=== PATIENT | male | born 1985 | race Two or more races ===

== ENCOUNTER 2022-11-06 17:51 | Inpatient (IN) | payer OTHER ==
[~2022-11-06] VITALS: Ht 177.8 cm; Wt 175.0 kg
[2022-11-06] MEDS ORDERED: SUBOXONE PO (18:24)
[2022-11-06] MEDS ORDERED: BUPRENORPHINE HCL/NALOXONE HCL 8-2 MG SUBLINGUAL TABLET SL ONE (19:45)
[2022-11-06 20:09] LABS: COVID AG,FIA SOURCE NASAL SWAB
[2022-11-06 20:29] LABS: SARS-COV2 (COVID) ANTIGEN,FIA Negative (Negative)
[2022-11-06 21:15] VITALS: BP 109/69; PULSE 86; RESP 18; TEMP 98.8
[2022-11-06] MEDS ORDERED: DICYCLOMINE HCL 10 MG CAPSULE PO PRN (22:30)
[2022-11-06] MEDS ORDERED: LOPERAMIDE HCL 2 MG CAPSULE PO PRN (22:30)
[2022-11-06] MEDS ORDERED: LORazepam 2 MG/ML VIAL IVP PRN (22:30)
[2022-11-06] MEDS ORDERED: ACETAMINOPHEN/CODEINE 300-15 MG TABLET PO PRN (22:30)
[2022-11-06] MEDS ORDERED: METOCLOPRAMIDE HCL 5 MG/ML 2 ML VIAL IVP PRN (22:30)
[2022-11-07 04:53] VITALS: BP 123/81; PULSE 86; RESP 20; TEMP 97.6
[2022-11-07 05:06] VITALS: BP 92/42; PULSE 75; RESP 20; TEMP 98.3
[2022-11-07 08:00] VITALS: BP 106/60; PULSE 68; RESP 20; TEMP 98.5
[2022-11-07 08:07] VITALS: BP 104/60; PULSE 69; RESP 18; TEMP 98.9
[2022-11-07 08:29] LABS: BASOPHILS % (AUTO) 2.6 % (0.0-2.0); EOSINOPHILS % (AUTO) 2.6 % (1.0-6.0); HEMATOCRIT 35.8 % (41-53); LYMPHOCYTES # (AUTO) 1.4 K/uL (1.0-4.8); MEAN CORPUSCULAR HEMOGLOBIN 28.5 pg (26.0-34.0); MEAN CORPUSCULAR HGB CONC 33.5 G/dL (31.0-37.0); MEAN CORPUSCULAR VOLUME 85 fL (80-100); MONOCYTES # (AUTO) 0.3 K/uL (0.1-1.0); MONOCYTES % (AUTO) 4.7 % (2.0-9.0); NEUTROPHILS # (AUTO) 5.2 K/uL (1.8-7.7); NEUTROPHILS % (AUTO) 71.1 % (40.0-70.0); PLATELET COUNT (AUTO) 441 K/uL (150-450); RED BLOOD CELL COUNT(AUTO) 4.21 MIL/uL (4.50-5.90); RED CELL DISTRIBUTION WIDTH 14.7 % (11.5-14.5); WHITE BLOOD COUNT (AUTO) 7.4 K/uL (4.5-11.0)
[2022-11-07 08:40] LABS: ANION GAP 6 mmol/L (8-16); CALCIUM, TOTAL 8.2 mg/dL (8.8-10.5); CARBON DIOXIDE 26 mmol/L (22-29); CHLORIDE 103 mmol/L (98-107); CREATININE 0.67 mg/dL (0.60-1.30); GLOMERULAR FILTR. RATE CALC > 60 mL/min (>60); GLUCOSE,RANDOM 96 mg/dL (70-110); POTASSIUM 4.1 mmol/L (3.5-5.1); SODIUM SERUM 135 mmol/L (136-145); UREA NITROGEN, BLOOD 16 mg/dL (7-18)
[2022-11-07 08:45] LABS: ALANINE AMINOTRANSFERASE 8 U/L (12-78); ALBUMIN 2.4 g/dL (3.4-5.0); ALKALINE PHOSPHATASE 56 U/L (46-116); ASPARTATE AMINOTRANSFERASE 11 U/L (15-37); BILIRUBIN,TOTAL 0.2 mg/dL (0.1-1.0); TOTAL PROTEIN, SERUM 6.1 g/dL (6.4-8.2)
[2022-11-07] MEDS ORDERED: LORazepam 2 MG/ML VIAL IM PRN (11:15)
[2022-11-07] MEDS ORDERED: METOCLOPRAMIDE HCL 5 MG TABLET PO PRN (11:15)
[2022-11-07 19:40] VITALS: BP 104/59; PULSE 95; RESP 20; TEMP 98.4
[2022-11-07] MEDS: TEMAZEPAM 15 MG CAPSULE PO SCH (21:00)
[2022-11-08 04:30] VITALS: BP 102/59; PULSE 69; RESP 20; TEMP 98.4
[2022-11-08 07:42] VITALS: BP 109/64; PULSE 78; RESP 20; TEMP 98.3
[2022-11-08 19:56] VITALS: BP 114/62; PULSE 89; RESP 18; TEMP 98.4
[2022-11-08] MEDS: TEMAZEPAM 15 MG CAPSULE PO SCH (21:08)
[2022-11-09 04:44] VITALS: BP 110/70; PULSE 80; RESP 19; TEMP 97.9
[2022-11-09 07:33] VITALS: BP 106/62; PULSE 91; RESP 19; TEMP 97.6
== END 2022-11-09 08:00 | DRG 897 ==
LOC: EMS 17:53 → 6S 20:51
PROVIDERS: ADMIT Internal Medicine; ATTEND Internal Medicine
DX: F11.90 Opioid use, unspecified, uncomplicated (principal); Z68.43 Body mass index [BMI] 50.0-59.9, adult; E66.01 Morbid (severe) obesity due to excess calories; F17.210 Nicotine dependence, cigarettes, uncomplicated; Z20.822 Contact with and (suspected) exposure to COVID-19
CPT/HCPCS: 36245; 36569; 76937; 80053; 85025; 99285; J2060

== ENCOUNTER 2022-11-14 18:15 | Inpatient (IN) | payer OTHER ==
[~2022-11-14] VITALS: Ht 177.8 cm; Wt 75.9 kg
[2022-11-14 22:20] LABS: BASOPHILS % (AUTO) 1.3 % (0.0-2.0); EOSINOPHILS % (AUTO) 1.4 % (1.0-6.0); HEMATOCRIT 38.3 % (41-53); HEMOGLOBIN 12.5 g/dL (13.5-17.5); LYMPHOCYTES # (AUTO) 1.5 K/uL (1.0-4.8); LYMPHOCYTES % (AUTO) 12.6 % (22.0-44.0); MEAN CORPUSCULAR HEMOGLOBIN 28.3 pg (26.0-34.0); MEAN CORPUSCULAR HGB CONC 32.6 G/dL (31.0-37.0); MEAN CORPUSCULAR VOLUME 87 fL (80-100); MONOCYTES # (AUTO) 0.7 K/uL (0.1-1.0); MONOCYTES % (AUTO) 6.1 % (2.0-9.0); NEUTROPHILS # (AUTO) 9.1 K/uL (1.8-7.7); NEUTROPHILS % (AUTO) 78.6 % (40.0-70.0); PLATELET COUNT (AUTO) 389 K/uL (150-450); RED BLOOD CELL COUNT(AUTO) 4.41 MIL/uL (4.50-5.90); RED CELL DISTRIBUTION WIDTH 16.8 % (11.5-14.5); WHITE BLOOD COUNT (AUTO) 11.5 K/uL (4.5-11.0)
[2022-11-14 22:30] LABS: COVID AG,FIA SOURCE NASAL SWAB
[2022-11-14 22:36] LABS: ANION GAP 9 mmol/L (8-16); CALCIUM, TOTAL 8.6 mg/dL (8.8-10.5); CARBON DIOXIDE 27 mmol/L (22-29); CHLORIDE 106 mmol/L (98-107); CREATININE 0.77 mg/dL (0.60-1.30); GLOMERULAR FILTR. RATE CALC > 60 mL/min (>60); GLUCOSE,RANDOM 106 mg/dL (70-110); POTASSIUM 4.1 mmol/L (3.5-5.1); SODIUM SERUM 142 mmol/L (136-145); UREA NITROGEN, BLOOD 19 mg/dL (7-18)
[2022-11-14 22:40] LABS: ALANINE AMINOTRANSFERASE 9 U/L (12-78); ALBUMIN 3.1 g/dL (3.4-5.0); ALKALINE PHOSPHATASE 62 U/L (46-116); ASPARTATE AMINOTRANSFERASE 16 U/L (15-37); BILIRUBIN,TOTAL 0.2 mg/dL (0.1-1.0); LIPASE 47 U/L (16-77); TOTAL PROTEIN, SERUM 6.9 g/dL (6.4-8.2)
[2022-11-14 22:43] LABS: LACTIC ACID 1.4 mmol/L (0.4-2.0)
[2022-11-14 23:09] LABS: INFLUENZA TYPE A NEGATIVE FOR TYPE A (NEGATIVE); INFLUENZA TYPE B NEGATIVE FOR TYPE B (NEGATIVE)
[2022-11-14 23:21] LABS: SARS-COV2 (COVID) ANTIGEN,FIA Negative (Negative)
[2022-11-15] MEDS ORDERED: BUPRENORPHINE HCL/NALOXONE HCL 8-2 MG SUBLINGUAL TABLET SL ONE
[2022-11-15] MEDS ORDERED: LEVOFLOXACIN 750 MG/D5% WATER 150 ML IV ONE
[2022-11-15] MEDS ORDERED: ACETAMINOPHEN 325 MG TABLET PO PRN
[2022-11-15] MEDS ORDERED: 0.9% SODIUM CHLORIDE 10 ML SYRINGE IVP PRN
[2022-11-15 05:07] LABS: BASOPHILS % (AUTO) 1.2 % (0.0-2.0); EOSINOPHILS % (AUTO) 1.9 % (1.0-6.0); HEMATOCRIT 36.1 % (41-53); LYMPHOCYTES # (AUTO) 1.1 K/uL (1.0-4.8); LYMPHOCYTES % (AUTO) 12.1 % (22.0-44.0); MEAN CORPUSCULAR HEMOGLOBIN 29.1 pg (26.0-34.0); MEAN CORPUSCULAR HGB CONC 33.3 G/dL (31.0-37.0); MEAN CORPUSCULAR VOLUME 87 fL (80-100); MONOCYTES # (AUTO) 0.6 K/uL (0.1-1.0); MONOCYTES % (AUTO) 6.5 % (2.0-9.0); NEUTROPHILS # (AUTO) 7.4 K/uL (1.8-7.7); NEUTROPHILS % (AUTO) 78.3 % (40.0-70.0); PLATELET COUNT (AUTO) 326 K/uL (150-450); RED BLOOD CELL COUNT(AUTO) 4.13 MIL/uL (4.50-5.90); RED CELL DISTRIBUTION WIDTH 17.1 % (11.5-14.5); WHITE BLOOD COUNT (AUTO) 9.5 K/uL (4.5-11.0)
[2022-11-15 05:21] LABS: ALANINE AMINOTRANSFERASE 7 U/L (12-78); ALBUMIN 2.7 g/dL (3.4-5.0); ALKALINE PHOSPHATASE 57 U/L (46-116); ANION GAP 7 mmol/L (8-16); ASPARTATE AMINOTRANSFERASE 6 U/L (15-37); BILIRUBIN,TOTAL 0.3 mg/dL (0.1-1.0); CALCIUM, TOTAL 8.2 mg/dL (8.8-10.5); CARBON DIOXIDE 27 mmol/L (22-29); CHLORIDE 106 mmol/L (98-107); CREATININE 0.66 mg/dL (0.60-1.30); GLOMERULAR FILTR. RATE CALC > 60 mL/min (>60); GLUCOSE,RANDOM 103 mg/dL (70-110); POTASSIUM 4.1 mmol/L (3.5-5.1); SODIUM SERUM 140 mmol/L (136-145); TOTAL PROTEIN, SERUM 6.2 g/dL (6.4-8.2); UREA NITROGEN, BLOOD 17 mg/dL (7-18)
[2022-11-15] MEDS ORDERED: MAGNESIUM HYDROXIDE SUSPENSION 30 ML UDCUP PO PRN (08:45)
[2022-11-15] MEDS ORDERED: ONDANSETRON HCL 4 MG/2 ML VIAL IVP PRN (08:45)
[2022-11-15] MEDS ORDERED: ZOLPIDEM TARTRATE 5 MG TABLET PO PRN (08:45)
[2022-11-15] MEDS ORDERED: LORazepam 2 MG/ML VIAL IVP PRN (08:45)
[2022-11-15] MEDS: FAMOTIDINE 20 MG TABLET PO SCH (09:31)
[2022-11-15 11:19] LABS: APPEARANCE,URINE CLEAR (CLEAR); BILIRUBIN,URINE NEGATIVE (NEGATIVE); COLOR,URINE LIGHT YELLOW (YELLOW); GLUCOSE, URINE (UA) NEGATIVE (NEGATIVE); KETONES,URINE NEGATIVE (NEGATIVE); LEUKOCYTE ESTERASE ,URINE NEGATIVE (NEGATIVE); NITRATE,URINE NEGATIVE (NEGATIVE); OCCULT BLOOD,URINE NEGATIVE (NEGATIVE); PROTEIN,URINE NEGATIVE (NEGATIVE); SPECIFIC GRAVITIY, URINE 1.026 (1.003-1.030); UROBILINOGEN,URINE <=1.0 mg/dL (<=1.0)
[2022-11-15 11:37] LABS: ALCOHOL, URINE DRUG SCREEN NEGATIVE (NEGATIVE); AMPHET/METH SCREEN,URINE NEGATIVE (NEGATIVE); BARBITURATE SCREEN, URINE NEGATIVE (NEGATIVE); BENZODIAZEPINES SCREEN,URINE NEGATIVE (NEGATIVE); CANNABINOID SCREEN,URINE NEGATIVE (NEGATIVE); COCAINE SCREEN,URINE NEGATIVE (NEGATIVE); METHADONE SCREEN, URINE NEGATIVE (NEGATIVE); OPIATE SCREEN,URINE POSITIVE (NEGATIVE); PHENCYCLIDINE SCREEN,URINE NEGATIVE (NEGATIVE)
[2022-11-15 13:00] VITALS: BP 128/70; PULSE 79; RESP 20; TEMP 98.2
[2022-11-15 15:00] VITALS: BP 112/69; PULSE 88; RESP 20; TEMP 98.3
[2022-11-15] MEDS: ACETAMINOPHEN 325 MG TABLET PO PRN (20:24)
[2022-11-15 20:56] VITALS: BP 123/55; PULSE 95; RESP 18; TEMP 98.5
[2022-11-16 00:45] VITALS: BP 97/57; PULSE 85; RESP 18; TEMP 98.1
[2022-11-16 04:30] VITALS: BP 108/69; PULSE 71; RESP 18; TEMP 98.2
[2022-11-16 07:53] VITALS: BP 108/61; PULSE 79; RESP 18; TEMP 99
[2022-11-16] MEDS: FAMOTIDINE 20 MG TABLET PO SCH (09:14)
[2022-11-16 11:32] VITALS: BP 114/56; PULSE 92; RESP 19; TEMP 98.2
[2022-11-16] MEDS: LORazepam 2 MG/ML VIAL IVP PRN (12:52)
[2022-11-16 16:03] VITALS: BP 112/46; PULSE 94; RESP 19; TEMP 98.7
[2022-11-17 00:50] VITALS: BP 108/55; PULSE 86; RESP 20; TEMP 98.2
[2022-11-17] MEDS: LORazepam 2 MG/ML VIAL IVP PRN (05:37)
[2022-11-17 05:58] VITALS: BP 109/68; PULSE 71; RESP 20; TEMP 98.4
[2022-11-17 08:30] VITALS: BP 130/81; PULSE 82; RESP 20; TEMP 98.4
[2022-11-17] MEDS: FAMOTIDINE 20 MG TABLET PO SCH (09:16)
[2022-11-17 11:30] VITALS: BP 113/74; PULSE 96; RESP 20; TEMP 98.5
[2022-11-17 16:58] VITALS: BP 116/72; PULSE 97; RESP 20; TEMP 98.7
[2022-11-17 20:56] VITALS: BP 110/54; PULSE 91; RESP 18; TEMP 98.4
[2022-11-18 03:06] LABS: HIV 1-2 SCREEN 4TH GEN W/RFLX Non Reactive (Non Reactive)
[2022-11-18 05:22] VITALS: BP 108/62; PULSE 75; RESP 18; TEMP 98.6
[2022-11-18] MEDS: FAMOTIDINE 20 MG TABLET PO SCH (08:20)
[2022-11-18 09:17] VITALS: BP 109/76; PULSE 82; RESP 20; TEMP 98.7
[2022-11-18 12:30] LABS: MTB PCR w/Rif. Resistance-SPUT NOT DETECTED (Not Detectd)
[2022-11-18 12:30] LABS: MTB PCR w/Rif. Resistance-SPUT NOT DETECTED (Not Detectd)
[2022-11-18 13:27] LABS: MTB PCR w/Rif. Resistance-SPUT NOT DETECTED (Not Detectd)
[2022-11-18 16:28] VITALS: BP 111/65; PULSE 101; RESP 20; TEMP 99.5
[2022-11-18 20:05] VITALS: BP 112/61; PULSE 95; RESP 20; TEMP 98.5
[2022-11-19 04:06] LABS: QUANTIFERON+, Nil Value 0.04 IU/mL; QUANTIFERON+,Mitogen Value 2.59 IU/mL; QUANTIFERON+,TB1 Antigen Value 0.05 IU/mL; QUANTIFERON+,TB2 Antigen Value 0.04 IU/mL; QUANTIFERON, TB GOLD PLUS Negative (Negative)
[2022-11-19 05:03] VITALS: BP 115/62; PULSE 73; RESP 18; TEMP 98.5
[2022-11-19] MEDS: FAMOTIDINE 20 MG TABLET PO SCH (08:26)
[2022-11-19 08:46] VITALS: BP 113/70; PULSE 77; RESP 19; TEMP 98.1
[2022-11-19] MEDS: ACETAMINOPHEN 325 MG TABLET PO PRN ×2 (15:11→21:02)
[2022-11-19 19:49] VITALS: BP 122/72; PULSE 89; RESP 20; TEMP 98.9
[2022-11-19] MEDS: GuaiFENesin [SUGAR-FREE] 200 MG/10 ML SOLUTION UDCUP PO PRN (23:14)
[2022-11-20 05:08] VITALS: BP 117/67; PULSE 70; RESP 18; TEMP 97.8
[2022-11-20 07:07] LABS: BASOPHILS % (AUTO) 1.5 % (0.0-2.0); EOSINOPHILS % (AUTO) 3.1 % (1.0-6.0); HEMATOCRIT 40.9 % (41-53); HEMOGLOBIN 13.8 g/dL (13.5-17.5); LYMPHOCYTES # (AUTO) 1.2 K/uL (1.0-4.8); LYMPHOCYTES % (AUTO) 16.8 % (22.0-44.0); MEAN CORPUSCULAR HEMOGLOBIN 29.6 pg (26.0-34.0); MEAN CORPUSCULAR HGB CONC 33.7 G/dL (31.0-37.0); MEAN CORPUSCULAR VOLUME 88 fL (80-100); MONOCYTES # (AUTO) 0.4 K/uL (0.1-1.0); MONOCYTES % (AUTO) 5.6 % (2.0-9.0); NEUTROPHILS # (AUTO) 5.2 K/uL (1.8-7.7); PLATELET COUNT (AUTO) 212 K/uL (150-450); RED BLOOD CELL COUNT(AUTO) 4.65 MIL/uL (4.50-5.90); RED CELL DISTRIBUTION WIDTH 17.3 % (11.5-14.5); WHITE BLOOD COUNT (AUTO) 7.2 K/uL (4.5-11.0)
[2022-11-20 07:39] LABS: ALANINE AMINOTRANSFERASE 11 U/L (12-78); ALBUMIN 2.8 g/dL (3.4-5.0); ALKALINE PHOSPHATASE 65 U/L (46-116); ANION GAP 9 mmol/L (8-16); ASPARTATE AMINOTRANSFERASE 8 U/L (15-37); BILIRUBIN,TOTAL 0.2 mg/dL (0.1-1.0); CALCIUM, TOTAL 8.7 mg/dL (8.8-10.5); CARBON DIOXIDE 27 mmol/L (22-29); CHLORIDE 107 mmol/L (98-107); CREATININE 0.68 mg/dL (0.60-1.30); GLOMERULAR FILTR. RATE CALC > 60 mL/min (>60); GLUCOSE,RANDOM 101 mg/dL (70-110); POTASSIUM 4.4 mmol/L (3.5-5.1); SODIUM SERUM 143 mmol/L (136-145); TOTAL PROTEIN, SERUM 7.1 g/dL (6.4-8.2); UREA NITROGEN, BLOOD 19 mg/dL (7-18)
[2022-11-20] MEDS: FAMOTIDINE 20 MG TABLET PO SCH (07:56)
[2022-11-20] MEDS: GuaiFENesin [SUGAR-FREE] 200 MG/10 ML SOLUTION UDCUP PO PRN (08:00)
[2022-11-20 11:55] VITALS: BP 115/71; PULSE 79; RESP 18; TEMP 97.8
== END 2022-11-20 19:50 | DRG 896 ==
LOC: EDUNIT# 18:15 → EMS 18:15 → EDSEX 18:15 → 5S 11-15 08:34 → 6S 11-17 18:55
PROVIDERS: ADMIT Internal Medicine; ATTEND Internal Medicine
DX: F11.13 Opioid abuse with withdrawal (principal); J18.9 Pneumonia, unspecified organism; F17.210 Nicotine dependence, cigarettes, uncomplicated; Z20.822 Contact with and (suspected) exposure to COVID-19
CPT/HCPCS: 71045; 80053; 80307; 81003; 83605; 83690; 84703; 85025; 86480; 87015; 87040; 87206; 87389; 87556; 87804; 94640; 99285; J1956; J2060; 36415-L1; 36415-TC